=== PATIENT | male | born 1970 | race Caucasian/White ===

== ENCOUNTER 2017-05-27 02:54 | Inpatient (IN) | payer OTHER ==
[~2017-05-27] VITALS: Ht 188 cm; Wt 76.7 kg
[2017-05-27] MEDS ORDERED: METH10TA2 PO (05:24)
[2017-05-27 05:30] VITALS: BP 137/83; RESP 18
[2017-05-27 05:40] VITALS: Ht 188 cm; Wt 76.7 kg
[2017-05-27 05:47] VITALS: BP 137/83; PULSE 78; RESP 18
[2017-05-27] MEDS ORDERED: LORAZEPAM 2 MG INJ IV STA (05:59)
--- NOTE | 2017-05-27 07:20 | HP ---
Date/Time of Note Date/Time of Note DATE: 05/27/17 TIME: 07:17 Assessment/Plan VTE Prophylaxis VTE Prophylaxis Intervention: heparin, SCD's Lines/Catheters IV Catheter Type (from [facility]): Saline Lock Assessment/Plan Chief Complaint/Hosp Course This is a 46-year-old male being admitted to the [facility] floor for: #1 Bilateral upper extremity cellulitis: he presented afebrile at the transferring facility. He was given ancef IV. At second time secondary to his history of drug use I will start him at this time on vancomycin pharmacy to dose. Will have the wound care team assessed him. I do not see any lesions that would require drainage. His last lactate was 1.3 at the facility. I will repeat a lactate. Will also consider infectious disease consult. We will need to follow up with blood cultures that were drawn at the transferring facility. Will order echocardiogram as well secondary to his history of IV drug use and history of fever and elevated lactate. I will repeat blood work at this time as well as a lactate level. #2 Polysubstance abuse: Patient reports recent use of heroin. He is currently on methadone. Will continue his methadone dose will need to confirm it with his clinic in the a.m. As he did present with an elevated lactate level. And he stated he had subjective fevers at home. I will also the current time will order an echocardiogram to assess for any signs of any endocarditis. His urine drug screen at the transfer facility was positive for marijuana, opioids, amphetamines. I do feel like he is withdrawing to certain degree as he is stating that he seemed parasites on his hands, the current time will put him on Ativan as needed. Patient may need a psych consult as well. #3 DVT and GI prophylaxis: Heparin, acid karl Further treatment strategy will be implemented as per the clinical course Problems: HPI/ROS Admit Date/Time Admit Date/Time May 27, 2017 at 04:53 Hx of Present Illness cc: arm redness, parasites in skin This is a 46-year-old homeless male who was transferred from [facility] complaining of bilateral arm redness, and "parasite in his skin . " Patient states that he is a heroin user and his last usage was yesterday. He ran out of his methadone and so that is what used it. He states that he has had subjective fevers. He has noticed redness on his bilateral arms. He also has noted multiple lesions where he injects on his arms and bilateral legs he states that there are parasites coming out of it and sometimes he picks at them to try to take him out. He also states that there is a lot of parasites on the streets. He goes to [facility] for his methadone. Allergies: NKDA Medications: See WILMAR RASHID Const: As per HPI Eyes : No pain discharge or redness or change in visual acuity ENT: No pain, sore throat, congestion, congestion, dysphagia or discharge Respiratory: No shortness of breath, cough, sputum, wheezing, or pleuritic pain Cardiovascular: No chest pain, palpitation, PND, or edema GI : no change in appetite, abdominal pain, nausea, vomiting, diarrhea, constipation, or change in the color his stool Genitourinary: No dysuria, hematuria, flank pain , discharge or CVA tenderness Musculoskeletal: No joint pain, back pain, neck pain, restricted range of motion in neck or joints Skin: As per HPI Neuro: No headache, dizziness, syncope, seizure, focal weakness Endocrine: No polyuria, polydipsia, temperature intolerance Psych: As per HPI PMH/Family/Social Past Medical History Polysubstance abuse, homeless Past Surgical History Left hip ORIF Family History Significant Family History: no pertinent family hx Social History Smoking Status: Current every day smoker (4 cigarettes daily) Drug Use: heroin, marijuana, other (Amphetamine) Exam/Review of Systems Vital Signs Vitals Vital Signs Date Time Temp Pulse Resp B/P Pulse Ox O2 Delivery O2 Flow Rate FiO2 05/27/17 05:47 98.2 78 18 137/83 100 Room Air Exam Exam General: Patient is lying in bed in no acute distress HEENT: Atraumatic, normocephalic. The pupils are equal, round and reactive. Extraocular motor are intact Neck: Supple with full range of motion. No rigidity or meningismus Chest: Nontender Lungs: Clear to auscultation bilaterally no crackles rales or wheezing Heart: Normal S1-S2, Regular rhythm and rate. No murmur, S3, or S4 Abdomen: Soft , nontender, nondistended , bowel sounds are present. No guarding no rebound tenderness , No masses or organomegaly. No costovertebral temporal angle mass Extremities: Normal to inspection, no edema no cyanosis Skin: Multiple lesions and areas of induration noted on the bilateral arms and bilateral legs and areas of injection. No active bleeding at any of the lesions. Bilateral redness and warmth noted at the level of the hand and forearm Neurologic: Normal mental status, speech normal, cranial nerves II through XII are intact, motor and sensory are intact, no focal weakness psych: Psych: Patient reports seeing parasites on his skin going in and out. Patient is adamant that he is not hallucinating. He also states that the drugs on the streets have had parasites in them. Additional Comments Pertinent laboratory findings from transferring facility are below, please see transfer documentation in the chart for full detail. Lactate initially was 2.2 subsequent lactate improved to 1.3. Medications Medications Current Medications Methadone HCl (Methadone) 40 mg DAILY PO ; Start 05/27/17 at 09:00; Status UNV Collagenase (Santyl) 1 applic DAILY TOP ; Start 05/27/17 at 09:00 Ondansetron HCl (Zofran Inj) 4 mg Q6H PRN IV NAUSEA AND/OR VOMITING; Start 05/27/17 at 07:30; Status UNV Acetaminophen (Tylenol Tab) 650 mg Q6H PRN PO PAIN LEVEL 1-3 OR FEVER; Start 05/27/17 at 07:30; Status UNV Famotidine (Pepcid) 20 mg Q12 PO ; Start 05/27/17 at 09:00; Status UNV Heparin Sodium (Porcine) (Heparin (5000 Units/0.5 ml)) 5,000 unit Q8 SC ; Start 05/27/17 at 07:30; Status UNV JEAN MARIE KIRK May 27, 2017 07:20
[2017-05-27] MEDS ORDERED: NACL 0.9% 3 ML SYG IV SCH (07:30)
[2017-05-27] MEDS ORDERED: LORAZEPAM 2 MG INJ IV PRN (07:30)
[2017-05-27] MEDS ORDERED: ONDANSETRON 4 MG INJ IV PRN (07:30)
[2017-05-27] MEDS ORDERED: ACETAMINOPHEN 325 MG TAB PO PRN (07:30)
[2017-05-27] MEDS ORDERED: VANCOMYCIN IV PER PHARMACY XX SCH (07:30)
[2017-05-27] MEDS ORDERED: VANCOMYCIN 1.5 GM in SOD CHLORIDE 0.9% 250 ML IVPB ONE (08:00)
[2017-05-27 08:20] VITALS: BP 140/83; RESP 18
[2017-05-27] MEDS ORDERED: METHADONE 10 MG TAB PO SCH (09:00)
[2017-05-27] MEDS: HEPARIN 5,000 UNIT/0.5 ML VIAL SC SCH ×3 (09:44→21:24)
[2017-05-27] MEDS: FAMOTIDINE 20 MG TAB PO SCH ×2 (09:46→21:23)
[2017-05-27 10:01] LABS: BASOPHIL # 0.1 10^3/ul (0.0-0.1); BASOPHILS % 0.7 % (0.0-2.0); EOSINOPHILS # 0.1 10^3/ul (0.0-0.5); EOSINOPHILS % 1.2 % (0.0-7.0); HEMATOCRIT 35.3 % (42.0-52.0); HEMOGLOBIN 11.2 g/dl (14.0-18.0); LYMPHOCYTES # 1.9 10^3/ul (0.8-2.9); LYMPHOCYTES % 24.6 % (15.0-51.0); MEAN CORPUSCULAR HEMOGLOBIN 27.8 pg (29.0-33.0); MEAN CORPUSCULAR HGB CONC 31.7 g/dl (32.0-37.0); MEAN CORPUSCULAR VOLUME 87.6 fl (82.0-101.0); MEAN PLATELET VOLUME 9.3 fl (7.4-10.4); MONOCYTE # 0.3 10^3/ul (0.3-0.9); MONOCYTES % 4.1 % (0.0-11.0); NEUTROPHIL # 5.2 10^3/ul (1.6-7.5); NEUTROPHILS % 69.1 % (39.0-77.0); PLATELET COUNT 407 10^3/UL (140-415); RED BLOOD COUNT 4.03 10^6/ul (4.70-6.10); WHITE BLOOD COUNT 7.5 10^3/ul (4.8-10.8)
[2017-05-27 10:20] LABS: CHOL/HDL RATIO 3.7 RATIO
[2017-05-27 10:34] LABS: ALBUMIN 3.6 g/dl (3.3-4.9); ALBUMIN/GLOBULIN RATIO 0.9; BILIRUBIN,INDIRECT 0.4 mg/dl (0-1.1); BILIRUBIN,TOTAL 0.4 mg/dl (0.2-1.3); CALCIUM 8.8 mg/dl (8.4-10.2); CREATININE 1.18 mg/dl (0.61-1.24); POTASSIUM 4.9 mmol/L (3.5-5.1); TOTAL PROTEIN 7.6 g/dl (6.1-8.1)
[2017-05-27 11:02] LABS: T3 UPTAKE 40.9 % (23.5-40.5)
[2017-05-27 14:11] VITALS: BP 134/77; RESP 16
[2017-05-27] MEDS: COLLAGENASE 30 GM TUBE TOP SCH (14:36)
[2017-05-27] MEDS: METHADONE 10 MG TAB PO SCH (14:37)
--- NOTE | 2017-05-27 17:49 | CONS ---
DATE OF ADMISSION: 05/27/2017 DATE OF CONSULTATION: 05/27/2017 TYPE OF CONSULTATION: Infectious Disease. REASON FOR CONSULTATION: Antibiotic management. HISTORY OF PRESENT ILLNESS: Francisco Soto is a 46-year-old homeless male transferred from [facility] with bilateral arm redness and "parasites in his skin" The patient is a heroin user, last u latosha was yesterday. He ran out of methadone. He has subjective fevers. He has noted redness on hi s bilateral arms, also noted multiple lesions where he injects in his arms and legs. He states they are parasites and sometimes he picks at them. On admission, his white count was 7.5, H and H 11.2 a nd 35.3, platelet count of 407,000. BUN and creatinine 14/1.18. AST and ALT are normal. PAST MEDICAL HISTORY: Operations as outlined. FAMILY HISTORY: Noncontributory. SOCIAL HISTORY: Does not smoke, drink . He has polysubstance abuse. He is homeless. He is a n everyday smoker, uses heroin, pot, amphetamines PAST SURGICAL HISTORY: Status post left hip open reduction, internal fixation. ALLERGIES: NONE TO PENICILLIN, SULFA OR FOODS. MEDICATIONS: Per chart. REVIEW OF SYSTEMS: As per HPI. PHYSICAL EXAMINATION: GENERAL: The patient is a chronically ill-appearing 46-year-old homeless male who is lying in bed i n no acute distress. SKIN: Without generalized rash. He has multiple lesions and areas of induration noted on his arms bilaterally and his legs bilaterally with areas of injection. No active bleeding. Bilateral rednes s and warmth noted at the level of the hand and forearm. HEENT: Within normal limits. NECK: Supple. LYMPH NODES: None palpable. CHEST: Decreased breath sounds at the bases. HEART: Without murmur or gallop. ABDOMEN: Soft, nontender, without organosplenomegaly or masses. EXTREMITIES: Without cyanosis, clubbing, or edema. RECTAL AND GENITAL: Deferred. NEUROLOGIC: No focal neurological abnormalities. IMPRESSION AND PLAN: The patient comes in now after shooting up. He has cellulitis bilaterally. T he patient was begun on vancomycin and methadone. He had blood cultures, MRSA screen and wound cult ures. We are going to get 2 sets of blood cultures on him since he is a heroin abuser and continue him on current therapy. I will dictate my findings to the hospitalist. Dictated By: YUDITH BROWNE MD, JD/LUZMARIA Conf#: [id number] DID#: [id number]
[2017-05-27 20:42] VITALS: BP 135/69; RESP 18
[2017-05-27] MEDS: VANCOMYCIN 1 GM in NS 250 ML IVPB SCH (21:23)
[2017-05-28 02:15] VITALS: BP 115/59; PULSE 70; RESP 18
[2017-05-28] MEDS: HEPARIN 5,000 UNIT/0.5 ML VIAL SC SCH ×3 (05:31→22:08)
[2017-05-28 08:00] VITALS: BP 136/78; RESP 18
[2017-05-28] MEDS: FAMOTIDINE 20 MG TAB PO SCH ×2 (09:11→21:25)
[2017-05-28] MEDS: COLLAGENASE 30 GM TUBE TOP SCH (09:11)
[2017-05-28] MEDS: METHADONE 10 MG TAB PO SCH (09:12)
[2017-05-28] MEDS: VANCOMYCIN 1 GM in NS 250 ML IVPB SCH ×2 (10:52→22:25)
[2017-05-28 14:00] VITALS: BP 138/87; RESP 18
--- NOTE | 2017-05-28 16:17 | RADRPT ---
Echocardiogram Report Patient Name: REGLA FLOOD Gender: Male Date: 1970 Study Date: 28-May-2017 Heating Engineer: ALEXANDRE Lim.[facility] Location: [facility] Ref. Physician: JEAN MARIE KIRK Quality: Adequate Procedures: Transthoracic echocardiogram with complete 2D, M-Mode, and doppler examination. Indications: Heroin use,cellulitis, fevers. 2D/M Mode Doppler Measurement Value Normal Ranges Measurement Value Normal Ranges LVIDd 2D 4.2 3.5 - 5.6 cm MARIANNE Vmax 2.4 cm2 LVIDs 2D 3.1 2.1 - 4.1 cm AV Peak Beau 1.5 m/sec FS 2D 26.2 % AV Peak PG 10.0 mmHg LVPWd 2D 1.1 0.6 - 1.1 cm LVOT Peak Beau 1.0 m/sec IVSd 2D 1.1 0.6 - 1.1 cm LVOT Peak PG 4.0 mmHg IVS/LVPW 2D 1.0 MV E Peak Beau 1.0 m/sec AoR Diam 2D 2.3 2.0 - 3.7 cm MV A Peak Beau 0.7 m/sec LA/Ao 2D 1 0 - 1 MV E/A 1.4 EDV 2D 74.1 cm3 MV Decel Time 162 msec ESV 2D 29.8 cm3 MV E/A 1.4 LA Dimen 2D 2.4 2.3 - 4.0 cm TR Peak Beau 3.3 m/sec LVOT Diam 2.2 cm TR Peak PG 45.0 mmHg LVOT Area 3.8 cm2 RVSP 50.0 mmHg Findings Left Ventricle: Normal left ventricular cavity size. Left ventricular wall thickness upper limits of normal. Mild concentric left ventricular hypertrophy. Severe left ventricular systolic dysfunction. Ejection fraction is visually estimated at 30 %. Tissue Doppler/Mitral Doppler indices are consistent with impaired relaxation (Stage I diastolic dysfunction). Right Ventricle: Normal right ventricular size. Normal right ventricular systolic function. Left Atrium: The left atrium is normal in size. Right Atrium: The right atrium is normal in size. Mitral Valve: Mitral valve leaflets appear mildly thickened. Mild mitral annular calcification. Mild mitral valve regurgitation. Aortic Valve: Normal appearance of the aortic valve. No significant aortic stenosis or insufficiency. Tricuspid Valve: Normal appearance of the tricuspid valve. Estimated peak PA systolic pressure 50 mmHg. There is mild to moderate tricuspid regurgitation. Pulmonic Valve: Normal pulmonic valve appearance. Pericardium: Normal pericardium with no significant pericardial effusion. Aorta: Normal aortic root. IVC: Normal size and normal respiratory collapse consistent with normal right atrial pressure. Conclusions 1.Normal left ventricular cavity size. Left ventricular wall thickness upper limits of normal. Mild concentric left ventricular hypertrophy. Severe left ventricular systolic dysfunction. Ejection fraction is visually estimated at 30 %. Tissue Doppler/Mitral Doppler indices are consistent with impaired relaxation (Stage I diastolic dysfunction). 2.Mitral valve leaflets appear mildly thickened. Mild mitral annular calcification. Mild mitral valve regurgitation. 3.Normal appearance of the aortic valve. No significant aortic stenosis or insufficiency. 4.Normal appearance of the tricuspid valve. Estimated peak PA systolic pressure 50 mmHg. There is mild to moderate tricuspid regurgitation. Electronically Signed By: Lennox Farrell 28-May-2017 16:16:51 -0700 Patient Name: REGLA FLOOD Study Date: 28-May-2017 [id number]
--- NOTE | 2017-05-28 16:32 | PN ---
Date/Time of Note Date/Time of Note DATE: 05/28/17 TIME: 16:26 Assessment/Plan VTE Prophylaxis VTE Prophylaxis Intervention: heparin Lines/Catheters IV [facility] Type (from [facility]): Saline Lock Urinary Cath still in place: No Assessment/Plan Assessment/Plan 1. Bilateral upper extremity cellulitis, on antibiotics, follow up with blood culture 2. Polysubstance abuse: Patient reports recent use of heroin. He is currently on methadone. Will continue his methadone dose will need to confirm it with his clinic in the a.m. As he did present with an elevated lactate level. And he stated he had subjective fevers at home. I will also the current time will order an echocardiogram to assess for any signs of any endocarditis. His urine drug screen at the transfer facility was positive for marijuana, opioids, amphetamines. I do feel like he is withdrawing to certain degree as he is stating that he seemed parasites on his hands, the current time will put him on Ativan as needed. Patient may need a psych consult as well. 3. DVT and GI prophylaxis: Heparin, acid karl Subjective 24 Hr Interval Summary Free Text/Dictation afebrile. Exam/Review of Systems Vital Signs Vitals Vital Signs Date Time Temp Pulse Resp B/P Pulse Ox O2 Delivery O2 Flow Rate FiO2 05/28/17 08:00 97.6 84 18 136/78 0 05/28/17 02:15 Room Air Intake and Output 05/27/17 05/27/17 05/28/17 15:00 23:00 07:00 Intake Total 250 ml 1400 ml 1750 ml Output Total 2400 ml 1800 ml Balance 250 ml -1000 ml -50 ml Exam Constitutional: alert, oriented, well developed Head: atraumatic, normocephalic Eyes: EOMI, nl conjunctiva, nl lids ENMT: nl external ears & nose, nl lips & teeth, nl nasal mucosa & septum Respiratory: clear to auscultation, normal air movement, No congested cough, No crackles/rales, No diminished breath sounds, No intercostal retraction, No labored breathing, No other, No respirations, No tactile fremitus, No wheezing Cardiovascular: nl pulses, regular rate and rhythm, No S3, No S4, No bruits, No diastolic murmur, No edema, No gallop, No irregular rhythm, No jugular venous distention (JVD), No murmurs/extra sounds, No other, No rub, No systolic murmur Gastrointestinal: nl liver, spleen, non-tender, soft, No ascites, No bowel sounds, No distended, No firm, No hepatomegaly, No mass , No other, No rebound or guarding, No splenomegaly, No surgical scars, No tender Musculoskeletal: nl extremities to inspection Extremities: normal pulses, No calf tenderness, No clubbing, No cyanosis Neurological: ERP MANAGER II-XII intact, nl mental status, nl speech, nl strength Skin: other (diffuse skin lesions with escars on both upper and lower extremities) Results Result Diagram: 05/27/1793505/27/17935 Medications Medications Current Medications Collagenase (Santyl) 1 applic DAILY TOP Last administered on 05/28/17 09:11; Admin Dose 1 APPLIC; Start 05/27/17 at 09:00 Ondansetron HCl (Zofran Inj) 4 mg Q6H PRN IV NAUSEA AND/OR VOMITING; Start 05/27/17 at 07:30 Acetaminophen (Tylenol Tab) 650 mg Q6H PRN PO PAIN LEVEL 1-3 OR FEVER; Start 05/27/17 at 07:30 Famotidine (Pepcid) 20 mg Q12 PO Last administered on 05/28/17 09:11; Admin Dose 20 MG; Start 05/27/17 at 09:00 Heparin Sodium (Porcine) (Heparin (5000 Units/0.5 ml)) 5,000 unit Q8 SC Last administered on 05/28/17 15:29; Admin Dose 5,000 UNIT; Start 05/27/17 at 07:30 Lorazepam (Ativan) 1 mg Q2 PRN IV AGITATION/ANXIETY; Start 05/27/17 at 07:30 Influenza Virus Vaccine 0.5 ml 0.5 ml ONCE ONCE IM* ; Start 05/29/17 at 09:00; Stop 05/29/17 at 09:01 Vancomycin HCl (Vancocin) 250 ml @ 125 mls/hr Q12H IVPB Last administered on 05/28/17 10:52; Admin Dose 125 MLS/HR; Start 05/27/17 at 22:00 Methadone HCl (Methadone) 35 mg DAILY PO Last administered on 05/28/17 09:12 ; Admin Dose 35 MG; Start 05/27/17 at 13:30 Miscellaneous Information (*Rx Drug Level Order Reminder*) 1 ONCE ONCE XX ; Start 05/28/17 at 21:00; Stop 05/28/17 at 21:01 ALBERTINA NAILS MD May 28, 2017 16:32
--- NOTE | 2017-05-28 18:19 | PN ---
DATE: 05/28/2017 INFECTIOUS DISEASE PROGRESS NOTE SUBJECTIVE: Patient is sleeping, looks comfortable, no fevers overnight. He is on vancomycin. MICROBIOLOGY: Right upper extremity wound culture growing strep species. PHYSICAL EXAMINATION: GENERAL: Well-developed, middle-aged white man in no distress. HEENT: Head atraumatic, normocephalic. Sclerae anicteric. Buccal mucosa dry. NECK: Supple. CHEST: Rise symmetrical. Breath sounds diminished to bases. HEART: S1, S2. ABDOMEN: Soft, bowel tones present. EXTREMITIES: Bilateral upper extremity swelling, erythema, left more than right. The patient also has multiple scabs over the body. ASSESSMENT: 1. Bilateral upper extremity cellulitis and multiple scabs. 2. IV drug use. PLAN: The patient remains stable. Wound culture growing staph species. He is on appropriate antim icrobials. Dictated By: RA FELDMAN EMERGENCY MEDICINE MEDICAL DIRECTOR for YUDITH FU/LUZMARIA Conf#: [id number] DID#: [id number]
[2017-05-28 20:34] VITALS: BP 132/71; RESP 16
[2017-05-29 02:42] VITALS: BP 111/57; RESP 18
[2017-05-29] MEDS: HEPARIN 5,000 UNIT/0.5 ML VIAL SC SCH ×3 (05:13→21:00)
[2017-05-29 06:43] LABS: CREATININE 1.02 mg/dl (0.61-1.24)
[2017-05-29 08:05] VITALS: BP 146/77; RESP 20
[2017-05-29] MEDS ORDERED: INFLUENZA VIRUS VACCINE 0.5 ML (DISPENSING) IM* ONE (09:00)
[2017-05-29] MEDS: FAMOTIDINE 20 MG TAB PO SCH ×2 (09:07→20:53)
[2017-05-29] MEDS: METHADONE 10 MG TAB PO SCH (09:07)
[2017-05-29] MEDS: COLLAGENASE 30 GM TUBE TOP SCH (09:16)
[2017-05-29] MEDS: VANCOMYCIN 1 GM in NS 250 ML IVPB SCH ×2 (10:27→20:53)
[2017-05-29 14:44] VITALS: BP 143/68; RESP 20
--- NOTE | 2017-05-29 15:40 | PN ---
Date/Time of Note Date/Time of Note DATE: 05/29/17 TIME: 15:34 Assessment/Plan VTE Prophylaxis VTE Prophylaxis Intervention: heparin, SCD's Lines/Catheters IV [facility] (from [facility]): Peripheral IV Urinary Cath still in place: No Assessment/Plan Assessment/Plan 1. Bilateral upper extremity cellulitis, on antibiotics, follow up with blood culture due to IVDA 2. Polysubstance abuse: Patient reports recent use of heroin. He is currently on methadone. 3. DVT and GI prophylaxis: Heparin, acid karl Subjective 24 Hr Interval Summary Free Text/Dictation afebrile Exam/Review of Systems Vital Signs Vitals Vital Signs Date Time Temp Pulse Resp B/P Pulse Ox O2 Delivery O2 Flow Rate FiO2 05/29/17 14:44 97.6 83 20 143/68 96 05/28/17 02:15 Room Air Intake and Output 05/28/17 05/28/17 05/29/17 15:00 23:00 07:00 Intake Total 250 ml 1440 ml 1810 ml Output Total 1600 ml 2000 ml Balance 250 ml -160 ml -190 ml Exam Constitutional: alert, oriented, well developed Psych: nl mood/affect, no complaints Head: atraumatic, normocephalic Eyes: EOMI, PERRL, nl conjunctiva, nl lids ENMT: nl external ears & nose, nl lips & teeth, nl nasal mucosa & septum Neck: non-tender, supple Respiratory: clear to auscultation, normal air movement, No congested cough, No crackles/rales, No diminished breath sounds, No intercostal retraction, No labored breathing, No other, No respirations, No tactile fremitus, No wheezing Cardiovascular: nl pulses, regular rate and rhythm, No S3, No S4, No bruits, No diastolic murmur, No edema, No gallop, No irregular rhythm, No jugular venous distention (JVD), No murmurs/extra sounds, No other, No rub, No systolic murmur Gastrointestinal: nl liver, spleen, non-tender, soft, No ascites, No bowel sounds, No distended, No firm, No hepatomegaly, No mass , No other, No rebound or guarding, No splenomegaly, No surgical scars, No tender Musculoskeletal: nl extremities to inspection Extremities: normal pulses, No calf tenderness, No clubbing, No cyanosis, No edema, No other, No palpable cord, No pitting pedal edema, No tenderness Neurological: INTERLIBRARY LOAN SERVICES LIBRARIAN II-XII intact, nl mental status, nl speech, nl strength Skin: other (diffuse skin lesion, healing on all extremities, both upper and lower, redness on both hands and forarms) Results Result Diagram: 05/27/17 0936 05/29/17 0523 Results 24 hrs Laboratory Tests Test 05/28/17 21:00 05/29/17 05:23 Vancomycin Level Trough 12.3 Blood Urea Nitrogen 22 H Creatinine 1.02 Medications Medications Current Medications Collagenase (Santyl) 1 applic DAILY TOP Last administered on 05/29/17 09:16; Admin Dose 1 APPLIC; Start 05/27/17 at 09:00 Ondansetron HCl (Zofran Inj) 4 mg Q6H PRN IV NAUSEA AND/OR VOMITING; Start 05/27/17 at 07:30 Acetaminophen (Tylenol Tab) 650 mg Q6H PRN PO PAIN LEVEL 1-3 OR FEVER; Start 05/27/17 at 07:30 Famotidine (Pepcid) 20 mg Q12 PO Last administered on 05/29/17 09:07; Admin Dose 20 MG; Start 05/27/17 at 09:00 Heparin Sodium (Porcine) (Heparin (5000 Units/0.5 ml)) 5,000 unit Q8 SC Last administered on 05/29/17 14:05; Admin Dose 5,000 UNIT; Start 05/27/17 at 07:30 Lorazepam 1 mg 1 mg Q2 PRN IV AGITATION/ANXIETY; Start 05/27/17 at 07:30 Vancomycin HCl (Vancocin) 250 ml @ 125 mls/hr Q12H IVPB Last administered on 05/29/17 10:27; Admin Dose 125 MLS/HR; Start 05/27/17 at 22:00 Methadone HCl (Methadone) 35 mg DAILY PO Last administered on 05/29/17 09:07 ; Admin Dose 35 MG; Start 05/27/17 at 13:30 ALBERTINA NAILS MD May 29, 2017 15:40
[2017-05-29 20:50] VITALS: BP 147/76; RESP 16
--- NOTE | 2017-05-29 22:44 | CONS ---
Date/Time of Note Date/Time of Note DATE: 05/29/17 TIME: 22:42 Consult Date/Type/Reason Admit Date/Time May 27, 2017 at 04:53 Initial Consult Date Type of Consultation: ID Objective Vital Signs Date Time Temp Pulse Resp B/P Pulse Ox O2 Delivery O2 Flow Rate FiO2 05/29/17 20:50 98.0 82 16 147/76 96 05/28/17 02:15 Room Air Intake and Output 05/28/17 05/28/17 05/29/17 15:00 23:00 07:00 Intake Total 250 ml 1440 ml 1810 ml Output Total 1600 ml 2000 ml Balance 250 ml -160 ml -190 ml Results/Medications Result Diagram: 05/27/17 0936 05/29/17 05 Results 24 hrs Laboratory Tests Test 05/29/17 05:23 Blood Urea Nitrogen 22 H Creatinine 1.02 Medications Current Medications Collagenase (Santyl) 1 applic DAILY TOP Last administered on 05/29/17 09:16; Admin Dose 1 APPLIC; Start 05/27/17 at 09:00 Ondansetron HCl (Zofran Inj) 4 mg Q6H PRN IV NAUSEA AND/OR VOMITING; Start 05/27/17 at 07:30 Acetaminophen (Tylenol Tab) 650 mg Q6H PRN PO PAIN LEVEL 1-3 OR FEVER; Start 05/27/17 at 07:30 Famotidine (Pepcid) 20 mg Q12 PO Last administered on 05/29/17 20:53; Admin Dose 20 MG; Start 05/27/17 at 09:00 Heparin Sodium (Porcine) (Heparin (5000 Units/0.5 ml)) 5,000 unit Q8 SC Last administered on 05/29/17 21:00; Admin Dose 5,000 UNIT; Start 05/27/17 at 07:30 Lorazepam 1 mg 1 mg Q2 PRN IV AGITATION/ANXIETY; Start 05/27/17 at 07:30 Vancomycin HCl (Vancocin) 250 ml @ 125 mls/hr Q12H IVPB Last administered on 05/29/17 20:53; Admin Dose 125 MLS/HR; Start 05/27/17 at 22:00 Methadone HCl (Methadone) 35 mg DAILY PO Last administered on 05/29/17 09:07 ; Admin Dose 35 MG; Start 05/27/17 at 13:30 Assessment/Plan Chief Complaint/Hosp Course SUBJECTIVE: No fevers overnight. Alert, feels good Abx: Vanco MICROBIOLOGY: Right upper extremity wound culture growing MRSA. PHYSICAL EXAMINATION: GENERAL: Well-developed, middle-aged white man in no distress. HEENT: Head atraumatic, normocephalic. Sclerae anicteric. Buccal mucosa dry. NECK: Supple. CHEST: Rise symmetrical. Breath sounds diminished to bases. HEART: S1, S2. ABDOMEN: Soft, bowel tones present. EXTREMITIES: Bilateral upper extremity swelling, erythema, left more than right. The patient also has multiple scabs over the body. ASSESSMENT: 1. Bilateral upper extremity MRSA cellulitis with multiple skin lesions 2. IV drug use. PLAN: The patient remains stable. Cellulitis improving, anticipate dc on PO Bactrim or Clindamycin for 2 weeks Problems: RA FELDMAN NP May 29, 2017 22:44
[2017-05-30 02:43] VITALS: BP 127/71; RESP 16
[2017-05-30] MEDS: HEPARIN 5,000 UNIT/0.5 ML VIAL SC SCH ×3 (05:37→22:20)
[2017-05-30 08:00] VITALS: BP 120/57; RESP 18
[2017-05-30] MEDS: FAMOTIDINE 20 MG TAB PO SCH ×2 (08:32→21:00)
[2017-05-30] MEDS: COLLAGENASE 30 GM TUBE TOP SCH (08:33)
[2017-05-30] MEDS: METHADONE 10 MG TAB PO SCH (08:33)
[2017-05-30] MEDS: VANCOMYCIN 1 GM in NS 250 ML IVPB SCH ×2 (09:46→22:18)
--- NOTE | 2017-05-30 13:52 | CONS ---
Date/Time of Note Date/Time of Note DATE: 05/30/17 TIME: 13:51 Consult Date/Type/Reason Admit Date/Time May 27, 2017 at 04:53 Type of Consultation: ID Objective Vital Signs Date Time Temp Pulse Resp B/P Pulse Ox O2 Delivery O2 Flow Rate FiO2 05/30/17 08:00 98.6 76 18 120/57 98 05/28/17 02:15 Room Air Intake and Output 05/29/17 05/29/17 05/30/17 15:00 23:00 07:00 Intake Total 250 ml 1200 ml 1850 ml Output Total 1400 ml 2150 ml Balance 250 ml -200 ml -300 ml Results/Medications Result Diagram: 05/27/1736 05/29/17 0523 Medications Current Medications Collagenase (Santyl) 1 applic DAILY TOP Last administered on 05/30/17 08:33; Admin Dose 1 APPLIC; Start 05/27/17 at 09:00 Ondansetron HCl (Zofran Inj) 4 mg Q6H PRN IV NAUSEA AND/OR VOMITING; Start 05/27/17 at 07:30 Acetaminophen (Tylenol Tab) 650 mg Q6H PRN PO PAIN LEVEL 1-3 OR FEVER; Start 05/27/17 at 07:30 Famotidine (Pepcid) 20 mg Q12 PO Last administered on 05/30/17 08:32; Admin Dose 20 MG; Start 05/27/17 at 09:00 Heparin Sodium (Porcine) (Heparin (5000 Units/0.5 ml)) 5,000 unit Q8 SC Last administered on 05/30/17 05:37; Admin Dose 5,000 UNIT; Start 05/27/17 at 07:30 Lorazepam 1 mg 1 mg Q2 PRN IV AGITATION/ANXIETY; Start 05/27/17 at 07:30 Vancomycin HCl (Vancocin) 250 ml @ 125 mls/hr Q12H IVPB Last administered on 05/30/17 09:46; Admin Dose 125 MLS/HR; Start 05/27/17 at 22:00 Methadone HCl (Methadone) 35 mg DAILY PO Last administered on 05/30/17 08:33 ; Admin Dose 35 MG; Start 05/27/17 at 13:30 Assessment/Plan Chief Complaint/Hosp Course SUBJECTIVE: No fevers overnight. Alert, feels good Abx: Vanco MICROBIOLOGY: Right upper extremity wound culture growing MRSA. PHYSICAL EXAMINATION: GENERAL: Well-developed, middle-aged white man in no distress. HEENT: Head atraumatic, normocephalic. Sclerae anicteric. Buccal mucosa dry. NECK: Supple. CHEST: Rise symmetrical. Breath sounds diminished to bases. HEART: S1, S2. ABDOMEN: Soft, bowel tones present. EXTREMITIES: Bilateral upper extremity swelling, erythema, left more than right. The patient also has multiple scabs over the body. ASSESSMENT: 1. Bilateral upper extremity MRSA cellulitis with multiple skin lesions 2. IV drug use. PLAN: The patient remains stable. Cellulitis improving, marissa stewart on PO Bactrim for 2 weeks Problems: RA FELDMAN NP May 30, 2017 13:52
--- NOTE | 2017-05-30 14:33 | PN ---
Date/Time of Note Date/Time of Note DATE: 05/30/17 TIME: 14:28 Assessment/Plan VTE Prophylaxis VTE Prophylaxis Intervention: heparin Lines/Catheters IV [facility]from [facility] Saline Lock Urinary Cath still in place: No Assessment/Plan Assessment/Plan 1. Bilateral upper extremity MRSA cellulitis, on antibiotics, follow up with blood culture negative in 2 days 2. Polysubstance abuse: Patient reports recent use of heroin. He is currently on methadone. 3. DVT and GI prophylaxis: Heparin, acid karl 4. Right breast swelling, surgical consult Subjective 24 Hr Interval Summary Free Text/Dictation swelling of right breast Exam/Review of Systems Vital Signs Vitals Vital Signs Date Time Temp Pulse Resp B/P Pulse Ox O2 Delivery O2 Flow Rate FiO2 05/30/17 08:00 98.6 76 18 120/57 98 05/28/17 02:15 Room Air Intake and Output 05/29/17 05/29/17 05/30/17 15:00 23:00 07:00 Intake Total 250 ml 1200 ml 1850 ml Output Total 1400 ml 2150 ml Balance 250 ml -200 ml -300 ml Exam Constitutional: alert, oriented, well developed Head: atraumatic, normocephalic Eyes: EOMI, nl conjunctiva, nl lids ENMT: nl external ears & nose, nl lips & teeth, nl nasal mucosa & septum Neck: non-tender, supple Respiratory: clear to auscultation, normal air movement, No congested cough, No crackles/rales, No diminished breath sounds, No intercostal retraction, No labored breathing, No other, No respirations, No tactile fremitus, No wheezing Cardiovascular: nl pulses, regular rate and rhythm, No S3, No S4, No bruits, No diastolic murmur, No edema, No gallop, No irregular rhythm, No jugular venous distention (JVD), No murmurs/extra sounds, No other, No rub, No systolic murmur Gastrointestinal: nl liver, spleen, non-tender, soft, No ascites, No bowel sounds, No distended, No firm, No hepatomegaly, No mass , No other, No rebound or guarding, No splenomegaly, No surgical scars, No tender Musculoskeletal: nl extremities to inspection Extremities: other (skin lesions on both upper and lowere extremities.) Neurological: SLATE HANDLER II-XII intact, nl mental status, nl speech, nl strength Skin: other (right breast is bigger then the left) Results Result Diagram: 05/27/17 0936 05/29/17 0523 Medications Medications Current Medications Collagenase (Santyl) 1 applic DAILY TOP Last administered on 05/30/17 08:33; Admin Dose 1 APPLIC; Start 05/27/17 at 09:00 Ondansetron HCl (Zofran Inj) 4 mg Q6H PRN IV NAUSEA AND/OR VOMITING; Start 05/27/17 at 07:30 Acetaminophen (Tylenol Tab) 650 mg Q6H PRN PO PAIN LEVEL 1-3 OR FEVER; Start 05/27/17 at 07:30 Famotidine (Pepcid) 20 mg Q12 PO Last administered on 05/30/17 08:32; Admin Dose 20 MG; Start 05/27/17 at 09:00 Heparin Sodium (Porcine) (Heparin (5000 Units/0.5 ml)) 5,000 unit Q8 SC Last administered on 05/30/17 05:37; Admin Dose 5,000 UNIT; Start 05/27/17 at 07:30 Lorazepam 1 mg 1 mg Q2 PRN IV AGITATION/ANXIETY; Start 05/27/17 at 07:30 Vancomycin HCl (Vancocin) 250 ml @ 125 mls/hr Q12H IVPB Last administered on 05/30/17 09:46; Admin Dose 125 MLS/HR; Start 05/27/17 at 22:00 Methadone HCl (Methadone) 35 mg DAILY PO Last administered on 05/30/17 08:33 ; Admin Dose 35 MG; Start 05/27/17 at 13:30 ALBERTINA NAILS MD May 30, 2017 14:32
[2017-05-30 15:36] VITALS: BP 130/77; RESP 20
--- NOTE | 2017-05-30 19:06 | CONS ---
Date/Time of Note Date/Time of Note DATE: 05/30/17 TIME: 18:58 Assessment/Plan Assessment/Plan Additional Assessment/Plan Right gynecomastia, minimally symptomatic, may be reactive. Recommend: Continue with planned medical therapy as outlined. When the patient' s condition fully stabilizes, the gynecomastia can be reevaluated as an outpatient Consultation Date/Type/Reason Admit Date/Time May 27, 2017 at 04:53 Date of Consultation: May 30, 2017 Reason for Consultation Right breast enlargement Hx of Present Illness The patient is a 46-year-old heroin addict who was admitted for extremity cellulitis secondary to heroin use. Clinically he is responding to intravenous antibiotics and is scheduled to be discharged tomorrow. States that several days ago he started to develop slight swelling and discomfort of his right breast, and this is why I have been asked to see him. Eyes: no complaints ENT: no complaints Respiratory: no complaints Cardiovascular: no complaints Gastrointestinal: no complaints Genitourinary: no complaints Musculoskeletal: no complaints, other (There is a right gynecomastia with minimal tenderness. No erythema) Skin: erythema, skin lesions (Multiple 1 cm necrotic patches both upper and lower extremities secondary to missed vein injections. The patient is radiating that these are from parasites.) Neurologic: no complaints Endocrine: no complaints Lymphatic: no complaints Psychological: nl mood/affect, no complaints Immunologic: no complaints Past Medical History Medical History: other (Heroin addiction) Social History Smoking Status: Current every day smoker (4 cigarettes daily) Drug Use: heroin, marijuana, other (Amphetamine) Exam/Review of Systems Vital Signs Vitals Vital Signs Date Time Temp Pulse Resp B/P Pulse Ox O2 Delivery O2 Flow Rate FiO2 05/30/17 15:36 98.4 80 20 130/77 96 05/28/17 02:15 Room Air Intake and Output 05/29/17 05/29/17 05/30/17 15:00 23:00 07:00 Intake Total 250 ml 1200 ml 1850 ml Output Total 1400 ml 2150 ml Balance 250 ml -200 ml -300 ml Exam Constitutional: alert, oriented Psych: no complaints Head: normocephalic Eyes: nl conjunctiva Neck: supple Respiratory: clear to auscultation Cardiovascular: regular rate and rhythm Gastrointestinal: soft Musculoskeletal: other (Right gynecomastia without erythema. Tenderness minimal) Extremities: other (Multiple 1 cm punctate necrotic lesions both lower extremities. There is erythema of the right upper extremity) Neurological: REINFORCING BAR SETTER II-XII intact Skin: other (As above) Results Result Diagram: 05/27/17 0936 05/29/17 0523 Medications Medications Current Medications Collagenase (Santyl) 1 applic DAILY TOP Last administered on 05/30/17 08:33; Admin Dose 1 APPLIC; Start 05/27/17 at 09:00 Ondansetron HCl (Zofran Inj) 4 mg Q6H PRN IV NAUSEA AND/OR VOMITING; Start 05/27/17 at 07:30 Acetaminophen (Tylenol Tab) 650 mg Q6H PRN PO PAIN LEVEL 1-3 OR FEVER; Start 05/27/17 at 07:30 Famotidine (Pepcid) 20 mg Q12 PO Last administered on 05/30/17 08:32; Admin Dose 20 MG; Start 05/27/17 at 09:00 Heparin Sodium (Porcine) (Heparin (5000 Units/0.5 ml)) 5,000 unit Q8 SC Last administered on 05/30/17 14:37; Admin Dose 5,000 UNIT; Start 05/27/17 at 07:30 Lorazepam 1 mg 1 mg Q2 PRN IV AGITATION/ANXIETY; Start 05/27/17 at 07:30 Vancomycin HCl (Vancocin) 250 ml @ 125 mls/hr Q12H IVPB Last administered on 05/30/17 09:46; Admin Dose 125 MLS/HR; Start 05/27/17 at 22:00 Methadone HCl (Methadone) 35 mg DAILY PO Last administered on 05/30/17 08:33 ; Admin Dose 35 MG; Start 05/27/17 at 13:30 LILLIAN GAMEZ MD May 30, 2017 19:06
[2017-05-30 20:00] VITALS: BP 127/68; RESP 20
[2017-05-31 02:00] VITALS: BP 130/74; RESP 20
[2017-05-31] MEDS: HEPARIN 5,000 UNIT/0.5 ML VIAL SC SCH ×2 (05:58→14:00)
[2017-05-31 06:53] LABS: CREATININE 0.93 mg/dl (0.61-1.24)
[2017-05-31 08:05] VITALS: BP 130/63; RESP 16
[2017-05-31] MEDS: FAMOTIDINE 20 MG TAB PO SCH (09:32)
[2017-05-31] MEDS: VANCOMYCIN 1 GM in NS 250 ML IVPB SCH (09:32)
[2017-05-31] MEDS: METHADONE 10 MG TAB PO SCH (09:32)
--- NOTE | 2017-05-31 11:11 | PN ---
Date/Time of Note Date/Time of Note DATE: 05/31/17 TIME: 11:11 Assessment/Plan Lines/Catheters IV Catheter Type (from [facility]): Saline Lock [place] in Place (from [facility]): No Assessment/Plan Chief Complaint/Hosp Course The patient is a 46-year-old heroin addict who was admitted for extremity cellulitis secondary to heroin use. Clinically he is responding to intravenous antibiotics and is scheduled to be discharged tomorrow. States that several days ago he started to develop slight swelling and discomfort of his right breast, and this is why I have been asked to see him. Problems: Assessment/Plan We will see patient in 6-8 weeks in follow-up for gynecomastia Subjective 24 Hr Interval Summary No significant change Exam/Review of Systems Vital Signs Vitals Vital Signs Date Time Temp Pulse Resp B/P Pulse Ox O2 Delivery O2 Flow Rate FiO2 05/31/17 08:05 98.1 80 16 130/63 96 05/28/17 02:15 Room Air Intake and Output 05/30/17 05/30/17 05/31/17 15:00 23:00 07:00 Intake Total 250 ml 1600 ml 1450 ml Output Total 1200 ml 1000 ml Balance 250 ml 400 ml 450 ml Results Result Diagram: 05/27/17 0936 05/31/17 0514 LILLIAN GAMEZ MD May 31, 2017 11:11
[2017-05-31 14:00] VITALS: BP 126/77; RESP 18
--- NOTE | 2017-05-31 14:45 | CONS ---
Date/Time of Note Date/Time of Note DATE: 05/31/17 TIME: 14:44 Consult Date/Type/Reason Admit Date/Time May 27, 2017 at 04:53 Type of Consultation: ID Objective Vital Signs Date Time Temp Pulse Resp B/P Pulse Ox O2 Delivery O2 Flow Rate FiO2 05/31/17 08:05 98.1 80 16 130/63 96 05/28/17 02:15 Room Air Intake and Output 05/30/17 05/30/17 05/31/17 15:00 23:00 07:00 Intake Total 250 ml 1600 ml 1450 ml Output Total 1200 ml 1000 ml Balance 250 ml 400 ml 450 ml Results/Medications Result Diagram: 05/27/17 0936 05/31/1714 Results 24 hrs Laboratory Tests Test 05/31/17 05:14 Blood Urea Nitrogen 22 H Creatinine 0.93 Medications Current Medications Collagenase (Santyl) 1 applic DAILY TOP Last administered on 05/30/17 08:33; Admin Dose 1 APPLIC; Start 05/27/17 at 09:00 Ondansetron HCl (Zofran Inj) 4 mg Q6H PRN IV NAUSEA AND/OR VOMITING; Start 05/27/17 at 07:30 Acetaminophen (Tylenol Tab) 650 mg Q6H PRN PO PAIN LEVEL 1-3 OR FEVER; Start 05/27/17 at 07:30 Famotidine (Pepcid) 20 mg Q12 PO Last administered on 05/31/17 09:32; Admin Dose 20 MG; Start 05/27/17 at 09:00 Heparin Sodium (Porcine) (Heparin (5000 Units/0.5 ml)) 5,000 unit Q8 SC Last administered on 05/30/17 22:20; Admin Dose 5,000 UNIT; Start 05/27/17 at 07:30 Lorazepam 1 mg 1 mg Q2 PRN IV AGITATION/ANXIETY; Start 05/27/17 at 07:30 Vancomycin HCl (Vancocin) 250 ml @ 125 mls/hr Q12H IVPB Last administered on 05/31/17 09:32; Admin Dose 125 MLS/HR; Start 05/27/17 at 22:00 Methadone HCl (Methadone) 35 mg DAILY PO Last administered on 05/31/17 09:32 ; Admin Dose 35 MG; Start 05/27/17 at 13:30 Assessment/Plan Chief Complaint/Hosp Course SUBJECTIVE: No fevers overnight. Alert, feels good, want to leave Abx: Vanco MICROBIOLOGY: Right upper extremity wound culture growing MRSA. PHYSICAL EXAMINATION: GENERAL: Well-developed, middle-aged white man in no distress. HEENT: Head atraumatic, normocephalic. Sclerae anicteric. Buccal mucosa dry. NECK: Supple. CHEST: Rise symmetrical. Breath sounds diminished to bases. HEART: S1, S2. ABDOMEN: Soft, bowel tones present. EXTREMITIES: Bilateral upper extremity swelling, erythema, left more than right. The patient also has multiple scabs over the body. ASSESSMENT: 1. Bilateral upper extremity MRSA cellulitis with multiple skin lesions 2. IV drug use. PLAN: Cellulitis improving, ok dc on PO Clindamycin for 2 weeks LACHO pt at bedside Problems: RA FELDMAN NP May 31, 2017 14:45
[2017-05-31] MEDS ORDERED: CLINDAMYCIN 150 MG CAP PO SCH (15:30)
[2017-05-31] MEDS ORDERED: SULF1TAB31 PO (16:49)
--- NOTE | 2017-05-31 16:55 | DS ---
Date/Time of Note Date/Time of Note DATE: 05/31/17 TIME: 16:50 Discharge Summary Admission/Discharge Info Admit Date/Time May 27, 2017 at 04:53 Discharge Date/Time Discharge Diagnosis 1. Bilateral upper extremity MRSA cellulitis, on antibiotics, follow up with blood culture negative in 2 days 2. Polysubstance abuse: Patient reports recent use of heroin, on methadone. follow up with pain management 3. Right gynecomastia, follow up with surgery in 6 weeks Patient Condition: Stable Hx of Present Illness This is a 46-year-old homeless male who was transferred from [facility] complaining of bilateral arm redness, and "parasite in his skin . " Patient states that he is a heroin user and his last usage was yesterday. He ran out of his methadone and so that is what used it. He states that he has had subjective fevers. He has noticed redness on his bilateral arms. He also has noted multiple lesions where he injects on his arms and bilateral legs he states that there are parasites coming out of it and sometimes he picks at them to try to take him out. He also states that there is a lot of parasites on the streets. He goes to [facility] for his methadone. Hospital Course Patient has redness and multiple skin lesions on both upper and lower extremities. Blood culture is negative. Patient is discharged on bactrim and will follow up with PCP outpatient. Patient is on methadone that he will follow up with his patient management physician. Patient has swelling of right breast that he was seen by Dr. Torres and diagnosed with gynecomastia. He will follow up with Dr. Torres outpatient. Home Meds Active Scripts Sulfamethoxazole/Trimethoprim* (Bactrim Ds* Tablet) 1 Each Tablet, 1 TAB PO BID for 7 Days, TAB Prov:ALBERTINA NAILS MD 05/31/17 Reported Medications Methadone Hcl* (Methadone*) 10 Mg Tab, 40 MG PO DAILY, TAB 05/27/17 Follow-up Plan PCP and pain management in 1-[address] Torres in 6 weeks Primary Care Provider Care Physician No Primary Pending Labs Laboratory Tests Test 05/31/17 05:14 Blood Urea Nitrogen 22mg/dl (7-20) Creatinine 0.93mg/dl (0.61-1.24) ALBERTINA NAILS MD May 31, 2017 16:55
[2017-05-31] MEDS: COLLAGENASE 30 GM TUBE TOP SCH (16:58)
== END 2017-05-31 18:15 | disposition home or self-care (01) | DRG 603 ==
LOC: PP2 04:53
PROVIDERS: ADMIT Family Medicine; ATTEND Family Medicine
DX: L03.114 Cellulitis of left upper limb (principal); B95.62 Methicillin resistant Staphylococcus aureus infection as the cause of diseases classified elsewhere; L03.113 Cellulitis of right upper limb; N62 Hypertrophy of breast; F19.10 Other psychoactive substance abuse, uncomplicated; Z59.0 Homelessness; Z72.0 Tobacco use
CPT/HCPCS: 80053; 80061; 80202; 82565; 83036; 83605; 84436; 84443; 84479; 84520; 85025; 87040; 87070; 87081; 90686; 93306; J1644; J2060; J3370; J7050